=== PATIENT | male | born 1955 | race African-American/Black ===

== ENCOUNTER 2017-10-13 22:46 | Emergency (ER) | payer MEDICAID ==
[~2017-10-13] VITALS: Ht 195.6 cm; Wt 72.6 kg
[~2017-10-13 22:46] MED LIST: KEPP500 PO
[2017-10-14 01:18] VITALS: BP 141/91
== END 2017-10-14 00:18 | disposition home or self-care (01) ==
LOC: ER 23:20
DX: G40.909 Epilepsy, unspecified, not intractable, without status epilepticus (principal)
CPT/HCPCS: 99283; Z7610